=== PATIENT | male | born 1965 | race African-American/Black ===

== ENCOUNTER 2017-01-29 13:13 | Emergency (ER) | payer OTHER ==
[~2017-01-29] VITALS: Ht 177.8 cm; Wt 90.7 kg
--- NOTE | ~2017-01-29 | CT2 ---
[facility] A Service of [facility] & [facility] RADIOLOGY TEXT RESULTS PATIENT: FAINA SMITH SR. LOCATION: [facility] : 61 UNIT #: [id number] AGE: [address]: Edward Salinas MD SEX: M ORDER DR: [id number] [facility] [address] [place], [place] [address] [id number] MR#: [id number] Acc #: [id number] NAME: FAINA SMITH SR. : 1965 SEX: M STUDY DATE/TIME: 01/29/2017 16:50 UNIT: [facility] ROOM: STUDY DESCRIPTION: CT Abd and Pelv W Cont Attending Physician: Edward Salinas M.D. Ordering Physician: Edward Salinas M.D. Primary Care Physician: Primary Care Physician No MEDICAL IMAGING REPORT This report is preliminary unless electronic signature is present EXAM CT abdomen and pelvis with IV contrast HISTORY Left side pain and vomiting today. TECHNIQUE This CT exam was performed with one or more of the following radiation dose reduction techniques: automatic exposure control, adjustment of mA and/or kV according to patient size, and iterative reconstruction. FINDINGS There is moderate left hydronephrosis and moderately severe left perinephric stranding. [id number] left ureteral dilatation. The liver, gallbladder, spleen, pancreas, right kidney, and adrenal glands are normal. No bowel dilatation. No free fluid. Normal caliber abdominal aorta. No adenopathy. CT PELVIS: There is a 7 mm calcification in the left lower pelvis, along the course of the distal left ureter, which could be a distal ureteral obstructing stone, but there is no definite urethral cuff about the stone. Moderate prostatic enlargement. Urinary bladder is unremarkable. IMPRESSION 1. Moderate left hydronephrosis and ureteral dilatation down to the lower pelvis. There is a 7 mm rounded calcification along the course of the distal left ureter and this could be a distal ureteral obstructing stone, versus adjacent phlebolith. No additional urinary calculi are identified. 2. No acute findings in the remainder of the abdomen or pelvis. 3. Moderate left perinephric stranding. 4. No bowel obstruction. STS. [facility] A Service of [facility] & [facility] RADIOLOGY TEXT RESULTS PATIENT: FAINA SMITH SR. LOCATION: [facility] #: [id number] : 61 UNIT #: [id number] AGE: [address]: Edward Salinas MD SEX: M ORDER DR: Dictated by... Anthony Altamirano M.D. THIS IS AN ELECTRONICALLY VERIFIED REPORT Anthony Altamirano M.D. at 01/30/2017 10:03 PM Julianne TD: 01/30/2017 11:36 JOB #: [id number] MEDICAL IMAGING REPORT Page 1 of 1 COPY
[2017-01-29 14:52] LABS: BASOPHIL# 0.1 X10e3 (0-0.3); BASOPHIL% 0.6 % (0-2.5); EOSINOPHIL% 0.4 % (0.0-7.0); HEMATOCRIT 45.4 % (38.0-50.0); LYMPHOCYTE# 1.4 X10e3 (1.0-3.5); LYMPHOCYTE% 10.7 % (17.0-45.0); MEAN CELL VOLUME 92.9 FL (83-96); MEAN CORPUSCULAR HEMOGLOBIN 30.8 PG (28-34); MEAN CORPUSCULAR HGB CONC 33.1 g/dL (30-36); MEAN PLATELET VOLUME 10.2 FL (6.5-11.5); MONOCYTE# 0.9 X10e3 (0-1.0); MONOCYTE% 7.4 % (3.0-12.0); NEUTROPHIL# 10.3 X10e3 (1.5-7.1); NEUTROPHIL% 80.9 % (40-75); PLATELET COUNT 197 X10e3 (140-420); RED BLOOD COUNT 4.89 X10e (3.90-5.60); RED CELL DISTRIBUTION WIDTH 13.2 % (11.0-15.5); WHITE BLOOD COUNT 12.7 X10e3 (4.0-10.5)
[2017-01-29 14:53] LABS: DIFF IND NO
[2017-01-29 15:25] LABS: ALBUMIN SERUM 4.1 g/dL (3.5-5.0); BILIRUBIN, DIRECT 0.1 mg/dL (0.0-0.2); BILIRUBIN,INDIRECT 0.2 mg/dL (0.0-0.9); BILIRUBIN,TOTAL 0.3 mg/dL (0.2-2.0); BUN/CREATININE RATIO 8.12; CALCIUM SERUM 8.8 mg/dL (8.4-10.2); CREATININE SERUM 1.6 mg/dL (0.6-1.4); GLOM FILT RATE Estimated 56.2 mL/min (>60); POTASSIUM 3.3 mmol/L (3.5-5.1); PROTEIN TOTAL SERUM 6.8 g/dL (6.0-8.3)
[2017-01-29 18:03] LABS: URINE SOURCE CLEAN CATCH
[2017-01-29 18:06] LABS: URINE APPEARANCE CLEAR; URINE BILIRUBIN NEG (NEG); URINE BLOOD 1+ (NEG); URINE COLOR YELLOW; URINE GLUCOSE 100 MG/DL (NEG); URINE KETONE NEG (NEG); URINE LEUKOCYTE ESTERASE TRACE (NEG); URINE NITRATE NEG (NEG); URINE PROTEIN TRACE (NEG); URINE SPECIFIC GRAVITY 1.023 (1.003-1.035)
[2017-01-29 18:09] LABS: CULTURE INDICATED? YES; URINE BACTERIA AUWI NEG (NEGATIVE); URINE SQUAMOUS EPITHELIAL CELL NONE SEEN /[HPF]
[2017-01-29 18:18] LABS: AMPHETAMINE NEG (NEG); BARBITURATES NEG (NEG); BENZODIAZEPINES NEG (NEG); COCAINE NEG (NEG); MARIJUANA NEG (NEG); OPIATES NEG (NEG); TRICYCLIC ANTIDEPRESSANTS NEG (NEG); U METHADONE NEG (NEG)
== END 2017-01-29 19:00 | disposition home or self-care (01) ==
LOC: CED 13:13
PROVIDERS: Emergency Medicine
DX: R10.9 Unspecified abdominal pain (principal); R11.2 Nausea with vomiting, unspecified; E11.9 Type 2 diabetes mellitus without complications; F17.200 Nicotine dependence, unspecified, uncomplicated
CPT/HCPCS: 36415; 74177; 80048; 80076; 80307; 81003; 82947; 83690; 85025; 87086; 96361; 96372; 96374; 96375; 96376; 99284; J0500; J1170; J2405; Q9967